=== PATIENT | female | born 1970 | race Caucasian/White ===

== ENCOUNTER → 2017-06-30 08:50 | Outpatient (CLI) | payer OTHER, SELFPAY ==
--- NOTE | 2017-06-30 | DI.US.S_ITS ---
PROCEDURE: US THYROID INDICATIONS: SENSATION OF LUMP IN THROAT TECHNIQUE: Real-time scanning was performed of the thyroid gland, with image documentation. COMPARISON: None. FINDINGS: Right: Thyroid lobe measures 4.6 x 1.6 x 2.0 cm, and is homogeneous in echotexture. Left: Thyroid lobe measures 3.4 x 1.2 x 1.2 cm, and is homogenous in echotexture. Isthmus: 2 mm thick. IMPRESSION: Unremarkable exam. Dictated by: Blanca Lozada M.D. on 06/30/2017 at 11:42 Approved by: Blanca Lozada M.D. on 06/30/2017 at 11:48
== END ==
PROVIDERS: Family Provider Internal Medicine; PCP Internal Medicine; Visit Provider Naturopath
DX: R09.89 Other specified symptoms and signs involving the circulatory and respiratory systems (principal)
CPT/HCPCS: 76536